=== PATIENT | female | born 1970 | race Caucasian/White ===

== ENCOUNTER → 2018-01-18 | Outpatient (CLI) | payer BC ==
--- NOTE | 2018-01-19 10:07 | RAD ---
Pelvis with left hip, 3 views, 01/18/2018: History: Hip pain No fracture or dislocation is identified. The hip joint spaces are well-maintained. There is minimal arthritic change at the symphysis pubis. IMPRESSION: No acute abnormality is detected.
== END | disposition home or self-care (01) ==
LOC: RAD 17:04
PROVIDERS: ATTEND Nurse Practitioner Family
DX: M25.552 Pain in left hip (principal)
CPT/HCPCS: 73502

== ENCOUNTER → 2019-01-22 | Outpatient (CLI) | payer BC ==
--- NOTE | 2019-01-22 12:36 | RAD ---
EXAM: Chest and right ribs, 4 views. HISTORY: Pain. COMPARISON: None. FINDINGS: A frontal view of the chest and 3 views of the right ribs are obtained. There is no infiltrate, pleural effusion or pneumothorax. The heart is normal in size. No displaced rib fracture is seen. IMPRESSION: No acute pulmonary or osseous finding. Electronically signed by: Sulma Humphries MD (01/22/2019 12:33 PM) [place] [id number]
== END | disposition home or self-care (01) ==
LOC: PMG 09:51
PROVIDERS: ATTEND Physician Assistant Medical
DX: R10.9 Unspecified abdominal pain (principal)
CPT/HCPCS: 71101

== ENCOUNTER → 2019-08-13 | Outpatient (CLI) | payer BC ==
--- NOTE | 2019-08-13 14:48 | RAD ---
EXAM: Carotid Doppler sonogram. HISTORY: Dyspnea on exertion. TECHNIQUE: Enriquez scale and color Doppler sonographic evaluation of the neck with spectral waveform analysis was performed and static images are submitted for review. FINDINGS: The peak systolic velocity within the right common carotid artery is 111 cm/sec. The peak systolic velocity within the right internal carotid artery is 91 cm/sec and the end diastolic velocity within the right internal carotid artery is 33 cm/sec. The right ICA/CCA ratio is 0.9. The peak systolic velocity within the left common carotid artery is 163 cm/sec. The peak systolic velocity within the left internal carotid artery is 129 cm/sec and the end diastolic velocity within the left internal carotid artery is 29 cm/sec. The left ICA/CCA ratio is 0.9. There is normal antegrade flow within both vertebral arteries. IMPRESSION: 1. Mildly elevated peak systolic velocity within the left ICA. Despite a normal ICA to CCA ratio, this suggests 50-69% stenosis. 2. No Doppler evidence of hemodynamically significant stenosis within the right ICA or bilateral vertebral arteries. PQRS Compliance Statement - Stenosis calculations for CT, MR and conventional angiography are based upon measurement of the distal ICA diameter in accordance with the NASCET methodology. Stenosis calculations for carotid ultrasound studies are derived from validated velocity criteria which are known to correlate with the NASCET methodology. Electronically signed by: Sulma Humphries MD (08/13/2019 2:45 PM) [place] [id number]
--- NOTE | 2019-08-13 15:37 | CARD ---
MR#: [id number] Date of Study: 08/13/2019 Ordering Physician: DENITA MATUTE, Referring Physician: DENITA MATUTE, Tech: Nicole Burnette APPROVED REPORT EXAM: Two-dimensional and M-mode echocardiogram with Doppler and color Doppler. Other Information Quality : AverageHR: 75bpm INDICATION Dyspnea 2D DIMENSIONS RVDd2.9 (2.9-3.5cm)Left Atrium(2D)2.9 (1.6-4.0cm) IVSd0.7 (0.7-1.1cm)Aortic Root(2D)2.6 (2.0-3.7cm) LVDd4.7 (3.9-5.9cm)LVOT Diameter1.9 (1.8-2.4cm) PWd0.8 (0.7-1.1cm)LVDs3.2 (2.5-4.0cm) FS (%) 30.6 %SV58.1 ml LVEF(%)58.1 (>50%) Aortic Valve AoV Peak Bari.114.0cm/sAoV VTI25.3cm AO Peak GR.5.2mmHgLVOT Peak Bari.97.5cm/s LVOT VTI 18.86cmAO Mean GR.3mmHg MESERET (VMAX)2.32wv2SDY (VTI)2.09cm2 Mitral Valve MV E Oqspdrfk00.3cm/sMV DECEL YNHW955mn MV A Nmnmrhgc26.5cm/sE/A Ratio0.9 Pulmonary Valve PV Peak Ylittwph87.5cm/sPV Peak Grad.3mmHg Tricuspid Valve TR P. Nqzzxadb470up/sRAP EWBFALOC1vlJg TR Peak Gr.19mmHg Pulmonary Vein S1 Eyuwyhrg18.6cm/sD2 Bmqfxogt53.0cm/s LEFT VENTRICLE The left ventricle is normal size. There is normal left ventricular wall thickness. The left ventricu lar systolic function is normal. The Ejection Fraction is 55%. There is normal LV segmental wall nat[place] on. The left ventricular diastolic function and filling is normal for age. RIGHT VENTRICLE The right ventricle is normal size. There is normal right ventricular wall thickness. The right ventr icular systolic function is normal. ATRIA The left atrium size is normal. The right atrium size is normal. The interatrial septum is intact wit h no evidence for an atrial septal defect or patent foramen ovale as noted on 2-D or Doppler imaging. AORTIC VALVE The aortic valve is normal in structure and function. Doppler and Color Flow revealed no significant aortic regurgitation. There is no significant aortic valvular stenosis. MITRAL VALVE The mitral valve is normal in structure and function. There is no evidence of mitral valve prolapse. There is no mitral valve stenosis. Doppler and Color-flow revealed trace mitral regurgitation. TRICUSPID VALVE The tricuspid valve is normal in structure and function. Doppler and Color Flow revealed trace tricus pid regurgitation with an estimated PAP of 22 mmHg. There is no tricuspid valve stenosis. PULMONIC VALVE The pulmonary valve is normal in structure and function. Doppler and Color Flow revealed trace to mil d pulmonic valvular regurgitation. GREAT VESSELS The aortic root is normal in size. The IVC is normal in size and collapses >50% with inspiration. PERICARDIAL EFFUSION There is no evidence of significant pericardial effusion. Critical Notification Critical Value: No <Conclusion> The left ventricular systolic function is normal. The Ejection Fraction is 55%. There is normal LV segmental wall motion. Trace mitral regurgitation. Trace tricuspid regurgitation with an estimated PAP of 22 mmHg. There is no evidence of significant pericardial effusion. Signed by : Atilio Marquez, Electronically Approved : 08/13/2019 15:36:58
== END | disposition home or self-care (01) ==
LOC: US 13:52
PROVIDERS: ATTEND Physician Assistant Medical
DX: I37.1 Nonrheumatic pulmonary valve insufficiency (principal)
CPT/HCPCS: 93306; 93880

== ENCOUNTER → 2019-09-05 | Outpatient (CLI) | payer BC ==
[~2019-09-05] MED LIST: ALPR0.25 PO; ASPI81TA50 PO
--- NOTE | 2019-09-05 13:17 | RAD ---
MR#: [id number] Date of Study: 09/05/2019 Ordering Physician: BOO MARQUEZ Referring Physician: KEVIN CHAPMAN Tech: RT Ayan Plunkett) (N) APPROVED REPORT Test Type: Exercise Stress Nurse/Tech: RT Kiarra (Ned) (N) Test Indications: dyspnea on exertion Cardiac History: none Medications: see EHR Medical History: see EHR Resting ECG: sinus rythm Resting Heart Rate: 66 bpm Resting Blood Pressure: 106/50mmHg Pretest Chest Pain: None Nurse/Tech Notes Consent: The procedure was explained to the patient in lay terms. Informed consent was witnessed. Lakhwinder eout was entered into [employer]. History and Stress Test performed by RT Ayan Plunkett) (N) POST EXERCISE Reason for Termination: Fatigue Target HR: Yes Max HR: 150 bpm 87% of Maximum Predicted HR: 173 bpm Exercise duration: 7:10 min:sec, 3 Stage Exercise capacity: 10METs Max Blood Pressure: 121/64mmHg INTERPRETATION Stress EKG Conclusion: Baseline EKG showed sinus rhythm. No ischemic changes at peak stress. No arr hythmias. Imaging Protocol IMAGE PROTOCOL: Rest Tc-99m/stress Tc-99m 1 day Rest: Stress: Viability: Radiopharm.Tc99m ZwqdsaexdCg77z Sestamibi Dose10.5mCi 30.7mCi Duration 15min. 15min. Img Date 09/05/2019 09/05/2019 Inj-Img [id number]. 60min. Rest Admin Site:IV - Right AntecubitalAdministrator: RT Kiarra (Ned)(N) Stress Admin Site: IV - Right AntecubitalAdministrator: RT Ayan Plunkett)(N) STRESS DATA End Diast. Vol.62.0mlAv. Heart Rate76.0bpm End Syst. Vol.20.0mlCO Index BSA0.0L/min Myocardial Bpuq038.0gEject. Ffizikah28.0% Stress Rates Pk. Fill Rate2.41EDV/secLVtime Pk. Fill 155.51msec Pk. Empty Rate4.93ESV/secLVtime Pk. Iplci632.86msec 1/3 Pk. Fill0.97EDV/sec Stress Scores Regional WT0.00Summed WT0.00 Regional WM0.00Summed WM2.00 Study quality was good. Left Ventricular size was Normal at Rest and Stress. Lung uptake was . Left Ventricular ejection fraction is 68%. The rest and stress images show normal perfusion, normal contraction and thickening. LV Perf. Quant 17 Seg. SSS0.00 17 Seg. SRS0.00 17 Seg. SDS0.00 Stress Defect Extent (% LAD)0.00Rest Defect Extent (% LAD)0.00Rev. Defect Extent (% LAD)0.00 Stress Defect Extent (% LCX) 0.00Rest Defect Extent (% LCX)0.00Rev. Defect Extent (% LCX)0.00 Stress Defect Extent (% RCA)0.00Rest Defect Extent (% RCA)0.00Rev. Defect Extent (% RCA)0.00 Stress Defect Extent (% HIWOT)0.00Rest Defect Extent (% HIWOT)0.00Rev. Defect Extent (% HIWOT)0.00 Conclusion 1. Treadmill exercise cardioisotope stress test did not show any evidence of ischemia or infarct. 2. Normal left ventricular systolic function with ejection fraction calculated at 68%. 3. Low risk for cardiac events. Signed by : Boo Marquez, Electronically Approved : 09/05/2019 13:16:41
== END | disposition home or self-care (01) ==
LOC: NM 08:05
PROVIDERS: ATTEND Internal Medicine Cardiovascular Disease
DX: R06.09 Other forms of dyspnea (principal)
CPT/HCPCS: 78452; 93017; A9500; 96376